=== PATIENT | female | born 1935 | race Caucasian/White ===

== ENCOUNTER 2025-02-04 00:53 | Outpatient (CLI) | payer MEDICARE, SELFPAY ==
[2025-02-04 15:08] LABS: HCT 44.2 % (36.0-46.0); HGB 14.2 g/dL (11.2-15.7); MCH 25.3 pg (27.0-33.0); MCHC 32.1 % (32.0-36.0); MCV 79 fL (80-95); MPV 9.3 fL (8.0-11.0); Platelet Count 141 10^3/uL (130-400); RBC 5.62 10^6/uL (3.93-5.22); RDW 18.8 % (11.7-14.6); RDW-SD 52.5 fL; WBC 6.35 10^3/uL (4.4-10.8)
[2025-02-04 15:21] LABS: Abs Immature Grans 0.00 10^3/uL (0.0-0.06); Immature Grans % 0.0 %; RBC Morphology Normal
[2025-02-04 15:36] LABS: Total Iron Binding Capacity 313 ug/dL (250-425)
[2025-02-04 15:37] LABS: Iron 29 ug/dL (50-170); Transferrin Sat 9 % (15-50)
[2025-02-04 15:43] LABS: Uric Acid 6.5 mg/dL (3.1-7.8)
[2025-02-04 15:44] LABS: LDH 202 U/L (120-246)
[2025-02-04 15:45] LABS: ALT 14 U/L (10-49); AST 28 U/L (<34); Albumin 3.6 g/dL (3.2-5.0); Alkaline Phosphatase 82 U/L (46-116); Anion Gap 9.4 mmol/L (3-11); BUN 15 mg/dL (9-23); Bilirubin, Total 1.2 mg/dL (0.2-1.2); CO2 28.6 mmol/L (20.0-31.0); Calcium 9.0 mg/dL (8.3-10.6); Chloride 108 mmol/L (98-107); Glucose 158 mg/dL (74-106); Potassium 4.1 mmol/L (3.5-5.1); Sodium 146 mmol/L (136-145); Total Protein 5.9 g/dL (5.7-8.2)
[2025-02-04 18:25] LABS: Ferritin 129 ng/mL (7-271)
[2025-02-04 22:58] LABS: HBs Antibody, Quant <3.1 mIU/mL (See Note); Hepatitis B Surface Ab Negative (See Note)
[2025-02-04 23:30] LABS: Hepatitis C Ab w Rflx HCV PCR Negative (Negative)
[2025-02-04 23:35] LABS: HIV-1/2 Ag & Ab Screen Negative (Negative)
[2025-02-04 23:42] LABS: Hep B Core Antibody Negative (Negative)
[2025-02-05 12:40] LABS: Albumin 58.3 % (55.8-66.1); Albumin g/dL 3.6 g/dL (3.6-5.2); Alpha 1 g/dL 0.30 g/dL (0.15-0.40); Alpha 2 g/dL 0.80 g/dL (0.50-1.00); Beta g/dL 0.70 g/dL (0.60-1.20); Gamma g/dL 0.80 g/dL (0.60-1.60); Total Protein 6.1 g/dL (6.3-8.2)
== END 2025-02-04 00:54 | disposition home or self-care (01) ==
LOC: LBO 00:53
PROVIDERS: Visit Provider Internal Medicine Hematology & Oncology
DX: D64.9 Anemia, unspecified (principal)
CPT/HCPCS: 36415; 80053; 82784; 86704; 86706; 86803; 87340; 87389; 82728; 83540; 83550; 83615; 84165; 84550; 85025